=== PATIENT | female | born 1995 | race Two or more races ===

== ENCOUNTER 2018-02-02 17:12 | Emergency (ER) | payer SELFPAY ==
[~2018-02-02] VITALS: Ht 170.2 cm; Wt 85.0 kg
[2018-02-02 17:14] VITALS: BP 125/76
== END 2018-02-02 19:30 | disposition left against medical advice (07) ==
LOC: ER 17:12
DX: Z53.21 Procedure and treatment not carried out due to patient leaving prior to being seen by health care provider (principal)